=== PATIENT | female | born 1980 | race Caucasian/White ===

== ENCOUNTER → 2017-10-07 | Outpatient (CLI) | payer SELFPAY ==
[~2017-10-07] MED LIST: Colace PO; ENDOCET 5-3251 EACH PO; GLUCOVANCE 21 TABLET PO; IBUPROFEN800 MG PO; LASIX40 MG PO; Motrin PO; PREDNISONE5 MG PO; PRENATAL TABLE1 EAC3 PO; Percocet 5/325,Endoc PO
== END | disposition home or self-care (01) ==
LOC: RAD 10-05 13:00
DX: D64.9 Anemia, unspecified (principal); N92.0 Excessive and frequent menstruation with regular cycle
CPT/HCPCS: 76856

== ENCOUNTER → 2017-11-15 | Outpatient (CLI) | payer OTHER | END | disposition home or self-care (01) | LOC: RAD 06:57 | DX: N83.201 Unspecified ovarian cyst, right side (principal); K76.0 Fatty (change of) liver, not elsewhere classified; R10.2 Pelvic and perineal pain | CPT/HCPCS: 74177 ==

== ENCOUNTER 2017-12-15 23:48 | Inpatient (IN) | payer OTHER ==
[~2017-12-15] VITALS: Ht 154.9 cm; Wt 90.7 kg
[~2017-12-15 23:48] MED LIST changes: +XANAX0.5 MG PO
[2017-12-16 11:12] VITALS: BP 120/69
[2017-12-16 18:33] VITALS: BP 132/80
[2017-12-16 19:43] LABS: HEMATOCRIT 38.7 % (36.0-46.0); HEMOGLOBIN 12.5 G/DL (11.9-15.5); MCH 28.6 PG (29.0-34.0); MCHC 32.3 G/DL (30.0-36.0); MCV 88.6 FL (83-99); PLATELET COUNT 224 K/uL (156-360); RBC DIS.WIDTH-CV 14.3 % (11.8-14.6); RBC DIS.WIDTH-SD 44.9 % (39-53); RED BLOOD COUNT 4.37 M/uL (3.80-5.20); WHITE BLOOD COUNT 12.5 K/uL (4.1-10.2)
[2017-12-16 20:08] LABS: CHLORIDE 106 MEQ/L (99-109); CREATININE 0.7 MG/DL (0.6-1.3); GFR ESTIMATE (CALCULATED) > 59 mL/min/; GLUCOSE 140 mg/dL (70-99); POTASSIUM 4.4 MEQ/L (3.7-5.4); SODIUM 136 MEQ/L (136-147); UREA NITROGEN (BUN) 15 mg/dL (9-23)
[2017-12-16 23:00] VITALS: BP 110/70
[2017-12-17 03:52] VITALS: BP 108/61
[2017-12-17 07:27] LABS: HEMATOCRIT 35.8 % (36.0-46.0); HEMOGLOBIN 11.7 G/DL (11.9-15.5); MCH 29.1 PG (29.0-34.0); MCHC 32.7 G/DL (30.0-36.0); MCV 89.1 FL (83-99); PLATELET COUNT 222 K/uL (156-360); RBC DIS.WIDTH-CV 14.3 % (11.8-14.6); RBC DIS.WIDTH-SD 45.2 % (39-53); RED BLOOD COUNT 4.02 M/uL (3.80-5.20); WHITE BLOOD COUNT 10.8 K/uL (4.1-10.2)
[2017-12-17 07:35] VITALS: BP 128/70
[2017-12-17 07:54] LABS: CHLORIDE 108 MEQ/L (99-109); CREATININE 0.7 MG/DL (0.6-1.3); GFR ESTIMATE (CALCULATED) > 59 mL/min/; POTASSIUM 4.1 MEQ/L (3.7-5.4); SODIUM 140 MEQ/L (136-147); UREA NITROGEN (BUN) 9 mg/dL (9-23)
[2017-12-17 07:58] LABS: GLUCOSE 91 mg/dL (70-99)
[2017-12-17 11:31] VITALS: BP 111/55
[2017-12-17 15:56] VITALS: BP 135/78
[2017-12-17 19:58] VITALS: BP 119/69
[2017-12-18 01:21] VITALS: BP 119/71
[2017-12-18 04:01] VITALS: BP 115/64
[2017-12-18 07:40] VITALS: BP 110/75
[2017-12-18 07:52] LABS: HEMATOCRIT 33.7 % (36.0-46.0); HEMOGLOBIN 10.8 G/DL (11.9-15.5); MCV 90.3 FL (83-99); PLATELET COUNT 192 K/uL (156-360); RBC DIS.WIDTH-CV 14.3 % (11.8-14.6); RBC DIS.WIDTH-SD 46.3 % (39-53); RED BLOOD COUNT 3.73 M/uL (3.80-5.20); WHITE BLOOD COUNT 6.8 K/uL (4.1-10.2)
[2017-12-18 08:15] LABS: CHLORIDE 110 MEQ/L (99-109); CREATININE 0.7 MG/DL (0.6-1.3); GFR ESTIMATE (CALCULATED) > 59 mL/min/; GLUCOSE 94 mg/dL (70-99); SODIUM 140 MEQ/L (136-147); UREA NITROGEN (BUN) 10 mg/dL (9-23)
[2017-12-18] MEDS ORDERED: TRAMADOL HCL50 MG PO (09:03)
== END 2017-12-18 11:51 | disposition home or self-care (01) | DRG 741 ==
LOC: ENRESERV 23:48 → 2SOUTH 12-16 10:36 → ENRESERV 12-16 14:14 → SDC 12-16 14:52 → EDSTATUS 12-16 15:29 → 2SOUTH 12-16 15:31 → ENRESERV 12-16 16:24 → 2EAST 12-16 18:23
PROVIDERS: Obstetrics & Gynecology Gynecologic Oncology
PROC: 0UT90ZZ Resection of Uterus, Open Approach (ICD-10-PCS; principal; 2017-12-16)
PROC: 07BC0ZX Excision of Pelvis Lymphatic, Open Approach, Diagnostic (ICD-10-PCS; principal; 2017-12-16)
PROC: 0UT70ZZ Resection of Bilateral Fallopian Tubes, Open Approach (ICD-10-PCS; principal; 2017-12-16)
PROC: 0UT20ZZ Resection of Bilateral Ovaries, Open Approach (ICD-10-PCS; principal; 2017-12-16)
DX: D06.9 Carcinoma in situ of cervix, unspecified (principal); D27.1 Benign neoplasm of left ovary; D27.0 Benign neoplasm of right ovary; N93.8 Other specified abnormal uterine and vaginal bleeding; D50.0 Iron deficiency anemia secondary to blood loss (chronic); E66.9 Obesity, unspecified; Z87.891 Personal history of nicotine dependence; Z68.36 Body mass index [BMI] 36.0-36.9, adult
CPT/HCPCS: 36415; 80048; 85027; 86850; 86900; 86901; 86920; 88305; 88309; J0131; J0690; J1100; J1170; J1650; J1885; J2250; J2405; J2710; J2765; J3010; Q0175